=== PATIENT | female | born 2000 | race Caucasian/White ===

== ENCOUNTER 2023-02-27 11:53 | Emergency (ER) | payer BC, MEDICAID ==
[2023-02-27 12:53] VITALS: BP 134/85; PULSE 71
== END 2023-02-27 13:35 | disposition home or self-care (01) ==
LOC: LB.ED 11:53
DX: S62.336A Displaced fracture of neck of fifth metacarpal bone, right hand, initial encounter for closed fracture (principal); W22.8XXA Striking against or struck by other objects, initial encounter
CPT/HCPCS: 73130-RT; 81025; 99283